=== PATIENT | female | born 1955 | race African-American/Black ===

== ENCOUNTER 2022-06-09 08:00 | Outpatient (RCR) | payer MEDICARE, MEDICAID, SELFPAY | END 2022-06-09 08:05 | disposition home or self-care (01) | LOC: PT 08:00 | PROVIDERS: Visit Provider Pediatrics | DX: L03.115 Cellulitis of right lower limb (principal); T25.021D Burn of unspecified degree of right foot, subsequent encounter; E11.43 Type 2 diabetes mellitus with diabetic autonomic (poly)neuropathy; Z79.4 Long term (current) use of insulin | CPT/HCPCS: 97162; 97597 ==